=== PATIENT | male | born 1940 | race Caucasian/White ===

== ENCOUNTER 2022-11-16 06:18 | Day surgery (SDC) | payer OTHER, BC ==
[2022-11-16] MEDS ORDERED: TROPICAMIDE 1% OPHTH SOLN 15 ML BOTTLE ONE (06:50)
[2022-11-16] MEDS ORDERED: KETOROLAC TROMETHAMINE 0.5% EYE DROP 1 DROP DROPS ONE (06:50)
[2022-11-16] MEDS ORDERED: PHENYLEPHRINE 2.5% OPTHALMIC DROP 2ML BOTTLE ONE (06:50)
[2022-11-16] MEDS ORDERED: OFLOXACIN 0.3% OPHTHALMIC SOLUTION 5 ML BOTTLE ONE (06:50)
[2022-11-16] MEDS ORDERED: CYCLOPENTOLATE HCL 1% OPHTH SOLN 2 ML BOTTLE ONE (06:50)
[2022-11-16 07:06] VITALS: RESP 18
[2022-11-16] MEDS ORDERED: BACITRACIN/POLYMYXIN OPH OINT 3.5 GM TUBE ONE (07:11)
[2022-11-16] MEDS ORDERED: PHENYLEPHRINE/KETOROLAC 4 ML VIAL IO ONE (07:11)
[2022-11-16] MEDS ORDERED: EPINEPHrine/PF 1 MG/1 ML (1:1,000) AMPULE ONE (07:11)
[2022-11-16] MEDS ORDERED: TETRACAINE 0.5% OPHTH SOLN 2 ML BOTTLE ONE ×2 (07:12→09:27)
[2022-11-16] MEDS ORDERED: BETAXOLOL HCL 0.25% OPHTHALMIC 10 ML DROPSBTL ONE (07:12)
[2022-11-16] MEDS ORDERED: EPI-SHUGARCAINE (EPINEPHRINE 0.025% & LIDOCAINE-PF 0.75%) 4ML ONE (07:12)
[2022-11-16] MEDS ORDERED: TRYPAN BLUE 0.5 ML DISP.SYRIN ONE (07:12)
[2022-11-16] MEDS ORDERED: NEO/POLYMYX B SULF/DEXAMETH OPHTHALMIC 5ML BOTTLE ONE (07:12)
[2022-11-16] MEDS ORDERED: ACETYLCHOLINE 1:100 INTRA-OCUL 20 MG/2 ML KIT ONE (07:12)
[2022-11-16] MEDS ORDERED: POVIDONE-IODINE 5% OPHTHALMIC PREP 30 ML SOLUTION ONE (07:12)
[2022-11-16] MEDS ORDERED: BSS (NA/CA/MG/K) BALANCED SALT SOLUTION OPHTH SOLN 15 ML BOTTLE ONE (07:12)
[2022-11-16] MEDS: TROPICAMIDE 1% OPHTH SOLN 15 ML BOTTLE OS SCH ×3 (07:20→07:30)
[2022-11-16] MEDS: PHENYLEPHRINE 2.5% OPHTH SOLN 15 ML BOTTLE OS SCH ×3 (07:20→07:30)
[2022-11-16] MEDS: CYCLOPENTOLATE HCL 1% OPHTH SOLN 2 ML BOTTLE OS SCH ×3 (07:20→07:30)
[2022-11-16] MEDS: KETOROLAC TROMETHAMINE 0.5% EYE DROP 1 DROP DROPS OS SCH ×3 (07:20→07:30)
[2022-11-16] MEDS: OFLOXACIN 0.3% OPHTHALMIC SOLUTION 5 ML BOTTLE OS SCH ×3 (07:20→07:30)
[2022-11-16] MEDS ORDERED: MIDAZOLAM HCL 2 MG/2 ML SINGLE DOSE VIAL ONE (07:50)
[2022-11-16] MEDS ORDERED: ACETAMINOPHEN 325 MG TABLET (FP) PO PRN (09:38)
[2022-11-16 10:13] VITALS: BP 135/84; PULSE 82; TEMP 97.9
== END 2022-11-16 10:30 | disposition home or self-care (01) ==
LOC: FASU 06:18
PROVIDERS: ATTEND Ophthalmology
PROC: 08RK3JZ Replacement of Left Lens with Synthetic Substitute, Percutaneous Approach (ICD-10-PCS; principal; 2022-11-16 08:59)
DX: H25.89 Other age-related cataract (principal)
CPT/HCPCS: 66984; V2632; J1097

== ENCOUNTER 2022-11-30 06:25 | Day surgery (SDC) | payer OTHER, BC ==
[2022-11-30] MEDS ORDERED: TROPICAMIDE 1% OPHTH SOLN 15 ML BOTTLE ONE (06:36)
[2022-11-30] MEDS ORDERED: PHENYLEPHRINE 2.5% OPTHALMIC DROP 2ML BOTTLE ONE (06:36)
[2022-11-30] MEDS ORDERED: OFLOXACIN 0.3% OPHTHALMIC SOLUTION 5 ML BOTTLE ONE (06:36)
[2022-11-30] MEDS ORDERED: KETOROLAC TROMETHAMINE 0.5% EYE DROP 1 DROP DROPS ONE (06:36)
[2022-11-30] MEDS ORDERED: CYCLOPENTOLATE HCL 1% OPHTH SOLN 2 ML BOTTLE ONE (06:36)
[2022-11-30] MEDS ORDERED: TROPICAMIDE 1% OPHTH SOLN 15 ML BOTTLE OD ONE ×2 (06:50→06:55)
[2022-11-30] MEDS ORDERED: OFLOXACIN 0.3% OPHTHALMIC SOLUTION 5 ML BOTTLE OD ONE ×2 (06:50→06:55)
[2022-11-30] MEDS ORDERED: PHENYLEPHRINE 2.5% OPHTH SOLN 15 ML BOTTLE OD ONE ×2 (06:50→06:55)
[2022-11-30] MEDS: KETOROLAC TROMETHAMINE 0.5% EYE DROP 1 DROP DROPS OD SCH ×2 (06:50→06:55)
[2022-11-30] MEDS ORDERED: CYCLOPENTOLATE HCL 1% OPHTH SOLN 2 ML BOTTLE OD ONE ×2 (06:55→07:00)
[2022-11-30] MEDS ORDERED: CYCLOPENTOLATE HCL 1% OPHTH SOLN 2 ML BOTTLE OD SCH (07:00)
[2022-11-30] MEDS ORDERED: KETOROLAC TROMETHAMINE 0.5% EYE DROP 1 DROP DROPS OD ONE (07:00)
[2022-11-30] MEDS ORDERED: OFLOXACIN 0.3% OPHTHALMIC SOLUTION 5 ML BOTTLE OD SCH (07:00)
[2022-11-30] MEDS ORDERED: PHENYLEPHRINE 2.5% OPHTH SOLN 15 ML BOTTLE OD SCH (07:00)
[2022-11-30] MEDS ORDERED: TROPICAMIDE 1% OPHTH SOLN 15 ML BOTTLE OD SCH (07:00)
[2022-11-30] MEDS ORDERED: EPINEPHrine/PF 1 MG/1 ML (1:1,000) AMPULE ONE (07:12)
[2022-11-30] MEDS ORDERED: BACITRACIN/POLYMYXIN OPH OINT 3.5 GM TUBE ONE (07:12)
[2022-11-30] MEDS ORDERED: PHENYLEPHRINE/KETOROLAC 4 ML VIAL IO ONE (07:12)
[2022-11-30] MEDS ORDERED: BETAXOLOL HCL 0.25% OPHTHALMIC 10 ML DROPSBTL ONE (07:12)
[2022-11-30] MEDS ORDERED: EPI-SHUGARCAINE (EPINEPHRINE 0.025% & LIDOCAINE-PF 0.75%) 4ML ONE (07:13)
[2022-11-30] MEDS ORDERED: TETRACAINE 0.5% OPHTH SOLN 2 ML BOTTLE ONE (07:13)
[2022-11-30] MEDS ORDERED: BSS (NA/CA/MG/K) BALANCED SALT SOLUTION OPHTH SOLN 15 ML BOTTLE ONE (07:13)
[2022-11-30] MEDS ORDERED: POVIDONE-IODINE 5% OPHTHALMIC PREP 30 ML SOLUTION ONE (07:13)
[2022-11-30] MEDS ORDERED: TRYPAN BLUE 0.5 ML DISP.SYRIN ONE (07:13)
[2022-11-30] MEDS ORDERED: NEO/POLYMYX B SULF/DEXAMETH OPHTHALMIC 5ML BOTTLE ONE (07:14)
[2022-11-30] MEDS ORDERED: ACETYLCHOLINE 1:100 INTRA-OCUL 20 MG/2 ML KIT ONE (07:14)
[2022-11-30] MEDS ORDERED: MIDAZOLAM HCL 2 MG/2 ML SINGLE DOSE VIAL ONE (07:34)
[2022-11-30] MEDS ORDERED: ACETAMINOPHEN 325 MG TABLET (FP) PO PRN (09:21)
[2022-11-30 09:36] VITALS: RESP 16; TEMP 98
[2022-11-30 10:39] VITALS: BP 107/66; PULSE 92
== END 2022-11-30 10:30 | disposition home or self-care (01) ==
LOC: FASU 06:25
PROVIDERS: ATTEND Ophthalmology
PROC: 08RJ3JZ Replacement of Right Lens with Synthetic Substitute, Percutaneous Approach (ICD-10-PCS; principal; 2022-11-30 08:49)
DX: H25.89 Other age-related cataract (principal)
CPT/HCPCS: 66984; V2632; J1097

== ENCOUNTER 2024-01-29 23:37 | Inpatient (IN) | payer OTHER, BC ==
[2024-01-30] MEDS ORDERED: LIDOCAINE HCL 2% (20ML MULTI-DOSE VIAL) ONE (00:04)
[2024-01-30] MEDS ORDERED: DIPHTH,PERTUSS(ACELL),TET 0.5 ML DISP.SYRIN IM ONE ×2 (00:55→00:56)
[2024-01-30] MEDS: DIPHTH,PERTUSS(ACELL),TET 0.5 ML DISP.SYRIN IM ONE (00:59)
[2024-01-30] MEDS ORDERED: ACETAMINOPHEN 325 MG TABLET (FP) PO ONE (01:39)
[2024-01-30] MEDS ORDERED: ACETAMINOPHEN INJECTION 100 ML IVPB ONE (02:38)
[2024-01-30] MEDS: ACETAMINOPHEN 1000 MG/100 ML BAG IVPB ONE (02:53)
[2024-01-30] MEDS: LIDOCAINE HCL 2% (50ML VIAL) SQ ONE (02:54)
[2024-01-30 03:01] LABS: BASO % 0.8 % (0-2.0); EOS % 2.4 % (0-4.5); HEMATOCRIT 40.2 % (35.4-49); LYMPH % 18.1 % (8-40); MCH 32.3 pg (25.7-33.7); MCHC 34.9 g/dl (32.0-35.9); MEAN CELL VOLUME 92.6 fl (80-96); MEAN PLT VOLUME 7.7 fl (7.5-11.1); MONO % 8.4 % (3.8-10.2); NEUT % 70.3 % (42.8-82.8); PLATELET COUNT 213 10^3/uL (134-434); RBC 4.34 M/mm3 (4.00-5.60); RDW 14.9 % (11.9-15.9); WHITE BLOOD COUNT 10.3 K/mm3 (4.0-10.0)
[2024-01-30 03:08] LABS: INR 1.35 (0.83-1.09); PROTHROMBIN TIME (PATIENT) 15.1 SEC (9.7-13.0)
[2024-01-30 03:11] LABS: ACTIVATED PTT 38.2 SECONDS (25.2-36.5)
[2024-01-30 03:14] LABS: POTASSIUM 4.1 mmol/L (3.5-5.1)
[2024-01-30 03:16] LABS: CALCIUM 8.5 mg/dL (8.5-10.1)
[2024-01-30 03:18] LABS: ALBUMIN 3.4 g/dl (3.4-5.0); BLOOD UREA NITROGEN 25.2 mg/dL (7-18)
[2024-01-30 03:20] LABS: CREATININE 1.1 mg/dL (0.55-1.3)
[2024-01-30 03:21] LABS: BILIRUBIN,TOTAL 0.7 mg/dL (0.2-1); TOT PROT 6.5 g/dl (6.4-8.2)
[2024-01-30] MEDS ORDERED: ACETAMINOPHEN 325 MG TABLET (FP) PO PRN ×2 (05:56→06:31)
[2024-01-30 06:47] LABS: HEMATOCRIT 37.7 % (35.4-49); HEMOGLOBIN 13.4 GM/dL (11.7-16.9); MCH 32.8 pg (25.7-33.7); MCHC 35.6 g/dl (32.0-35.9); MEAN CELL VOLUME 92.2 fl (80-96); MEAN PLT VOLUME 7.2 fl (7.5-11.1); PLATELET COUNT 202 10^3/uL (134-434); RBC 4.09 M/mm3 (4.00-5.60); RDW 14.3 % (11.9-15.9); WHITE BLOOD COUNT 10.1 K/mm3 (4.0-10.0)
[2024-01-30 07:09] LABS: POTASSIUM 3.6 mmol/L (3.5-5.1)
[2024-01-30 07:11] LABS: CALCIUM 7.3 mg/dL (8.5-10.1)
[2024-01-30 07:12] LABS: ALBUMIN 2.9 g/dl (3.4-5.0); MAGNESIUM 1.7 mg/dL (1.8-2.4)
[2024-01-30 07:15] LABS: CREATININE 0.9 mg/dL (0.55-1.3)
[2024-01-30 07:16] LABS: TOT PROT 5.5 g/dl (6.4-8.2)
[2024-01-30 07:17] LABS: BILIRUBIN,TOTAL 0.7 mg/dL (0.2-1)
[2024-01-30] MEDS ORDERED: METOPROLOL TARTRATE 25 MG TABLET (FP) ONE (09:31)
[2024-01-30] MEDS ORDERED: FAMOTIDINE 20 MG TABLET ONE (09:31)
[2024-01-30] MEDS: METOPROLOL TARTRATE 25 MG TABLET (FP) PO SCH (10:26)
[2024-01-30] MEDS: FAMOTIDINE 20 MG TABLET PO SCH (10:26)
[2024-01-30 16:58] VITALS: BMI 19.9
[2024-01-30 19:05] VITALS: RESP 20
[2024-01-30] MEDS: ATORVASTATIN CA 40 MG TABLET (FP) PO SCH (21:32)
[2024-01-31 05:49] VITALS: BP 110/70; PULSE 81; TEMP 97.7
[2024-01-31] MEDS: MAGNESIUM 2GM/50ML STERILE WATER IVPB IVPB ONE (08:54)
== END 2024-01-31 17:05 | disposition home or self-care (01) | DRG 605 ==
LOC: JER 23:37 → JERBED 01-30 03:33 → OBSVTOIN 01-30 05:39 → JERBED 01-30 10:44 → J4W 01-30 10:46
PROVIDERS: ADMIT Internal Medicine; ATTEND Internal Medicine
DX: S00.03XA Contusion of scalp, initial encounter (principal); I69.351 Hemiplegia and hemiparesis following cerebral infarction affecting right dominant side; I10 Essential (primary) hypertension; E78.00 Pure hypercholesterolemia, unspecified; I48.91 Unspecified atrial fibrillation; I35.0 Nonrheumatic aortic (valve) stenosis; W19.XXXA Unspecified fall, initial encounter; Y93.9 Activity, unspecified; Y92.099 Unspecified place in other non-institutional residence as the place of occurrence of the external cause; Y99.9 Unspecified external cause status
CPT/HCPCS: 0241U-QW; 36415; 70450-TC; 72125-TC; 80053; 83735; 84100; 84484; 85025; 85027; 85610; 85730; 90715; 93005; 93010; 97116-GP; 97161-GP; 99285-25; G0378

== ENCOUNTER 2025-03-18 02:25 | Inpatient (IN) | payer OTHER, BC ==
[2025-03-18 04:13] LABS: URINE APPEARANCE CLEAR; URINE BILIRUBIN NEGATIVE (NEGATIVE); URINE COLOR YELLOW; URINE GLUCOSE (UA) NEGATIVE (NEGATIVE); URINE KETONE TRACE (NEGATIVE); URINE LEUK ESTERASE NEGATIVE (NEGATIVE); URINE NITRITE NEGATIVE (NEGATIVE); URINE PROTEIN NEGATIVE (NEGATIVE); URINE UROBILINOGEN 0.2 mg/dL (0.2-1.0)
[2025-03-18 04:14] LABS: MCHC 32.5 g/dl (32.3-36.5); MEAN CELL VOLUME 97.9 fl (79.0-92.2); MEAN PLT VOLUME 9.8 fl (9.4-12.4); RDW 14.3 % (12.6-16.6)
[2025-03-18] MEDS ORDERED: PIPERACILLIN/TAZOB 4.5 GM 4.5 GM/100 ML BAG IVPB ONE (04:42)
[2025-03-18 04:54] LABS: CO2 24.0 mmol/L (21-32); GLUCOSE,RANDOM 137.0 mg/dL (74-106)
[2025-03-18 04:57] LABS: SGOT/AST 37.0 U/L (15-37); SGPT/ALT 44.0 U/L (13-61)
[2025-03-18 04:58] LABS: CREATININE 1.4 mg/dL (0.55-1.3)
[2025-03-18 04:59] LABS: TOT PROT 6.8 g/dl (6.4-8.2)
[2025-03-18 05:00] LABS: ALK PHOS 125.0 U/L (45-117)
[2025-03-18 05:02] LABS: N-TERMINAL BNP 2528.5 pg/ml (5-450)
[2025-03-18] MEDS: PIPERACILLIN/TAZOB 4.5 GM 4.5 GM in DEXTROSE 5%-WATER 100 ML IVPB ONE (05:02)
[2025-03-18] MEDS: VANCOMYCIN HCL 1,500 MG in DEXTROSE 5%-WATER - 500 ML IVPB ONE (05:44)
[2025-03-18] MEDS: VANCOMYCIN PREMIX 1.5 GM 1,500 MG/300 ML BAG IVPB ONE (05:44)
[2025-03-18 05:50] LABS: HCV DIAGNOSTIC IN-HOUSE W/RFLX NON-REACTIVE (NONREACTIVE)
[2025-03-18] MEDS ORDERED: ACETAMINOPHEN INJECTION 100 ML ONE (10:19)
[2025-03-18] MEDS ORDERED: CEFTRIAXONE 2 GM-D5W BAG 2 GM/50 ML BAG IVPB SCH (10:45)
[2025-03-18] MEDS ORDERED: ACETAMINOPHEN 500 MG TABLET (FP) PO PRN (10:47)
[2025-03-18] MEDS ORDERED: ENOXAPARIN NA (PORCINE) 80 MG/0.8 ML DISP.SYRIN SQ ONE (10:58)
[2025-03-18] MEDS ORDERED: CEFEPIME HCL/D5W 2 GM/50 ML BAG IVPB ONE (10:59)
[2025-03-18] MEDS ORDERED: LACTATED RINGERS SOLUTION 1,000 ML/1,000 ML INFUS.BAG IV SCH (11:15)
[2025-03-18] MEDS: ACETAMINOPHEN 1000 MG/100 ML BAG IVPB ONE (13:51)
[2025-03-18] MEDS: ENOXAPARIN NA (PORCINE) 80 MG/0.8 ML DISP.SYRIN SQ SCH (13:52)
[2025-03-18] MEDS: LACTATED RINGERS SOLUTION 1,000 ML/1,000 ML INFUS.BAG IV SCH (13:53)
[2025-03-18] MEDS: CEFEPIME HCL/D5W 2 GM/50 ML BAG IVPB SCH (13:53)
[2025-03-18] MEDS ORDERED: VANCOMYCIN 1,000 MG in DEXTROSE 5%-WATER - 250 ML IVPB SCH (17:00)
[2025-03-18] MEDS ORDERED: VANCOMYCIN 1 GM PREMIX (F) 1 GM/200 ML BAG IVPB SCH (18:00)
[2025-03-18] MEDS: METOPROLOL TARTRATE 25 MG TABLET (FP) PO SCH (22:47)
[2025-03-19 00:24] VITALS: BMI 23.1
[2025-03-19] MEDS: VANCOMYCIN/WATER FOR INJ (PEG) 1,000 MG/200 ML BAG IVPB SCH (03:54)
[2025-03-19 07:10] LABS: ABSOLUTE IMMATURE GRANULOCYTES 0.06 x10^3/uL (0.0-0.031); BASOPHILS # 0.04 x10^3/uL (0.01-0.08); EOSINOPHIL % 2.1 % (0.8-7.0); EOSINOPHILS # 0.24 x10^3/uL (0.04-0.54); MCHC 32.4 g/dl (32.3-36.5); MEAN CELL VOLUME 97.2 fl (79.0-92.2); MEAN PLT VOLUME 9.4 fl (9.4-12.4); MONOCYTE # 0.96 x10^3/uL (0.30-0.82); MONOCYTE % 8.4 % (5.3-12.2); RDW 14.5 % (12.6-16.6)
[2025-03-19 07:26] LABS: CO2 25.0 mmol/L (21-32); GLUCOSE,RANDOM 79.0 mg/dL (74-106)
[2025-03-19 07:29] LABS: CREATININE 1.0 mg/dL (0.55-1.3)
[2025-03-19] MEDS ORDERED: CEFTRIAXONE 2 MG in DEXTROSE 5%-WATER - 50 ML IVPB SCH (10:15)
[2025-03-19] MEDS: CEFTRIAXONE 2 GM in DEXTROSE 5%-WATER 100 ML IVPB SCH (13:19)
[2025-03-19] MEDS: APIXABAN 5 MG TABLET PO SCH (13:20)
[2025-03-19] MEDS: FUROSEMIDE 40 MG TABLET (FP) PO SCH (13:37)
[2025-03-19 19:43] LABS: HIV INTERPRETATION NEGATIVE (NEGATIVE)
[2025-03-19] MEDS: ATORVASTATIN CA 40 MG TABLET (FP) PO SCH (21:52)
[2025-03-19] MEDS: METOPROLOL TARTRATE 25 MG TABLET (FP) PO SCH (21:52)
[2025-03-19] MEDS: CEFEPIME HCL/D5W 2 GM/50 ML BAG IVPB SCH (23:41)
[2025-03-19] MEDS: VANCOMYCIN 1,000 MG in DEXTROSE 5%-WATER - 250 ML IVPB SCH (23:42)
[2025-03-19] MEDS ORDERED: ACETAMINOPHEN 500 MG TABLET (FP) PO PRN (23:43)
[2025-03-20] MEDS: ASPIRIN 81 MG CHEWABLE TABLETS PO ONE (00:21)
[2025-03-20 00:49] LABS: CO2 26.0 mmol/L (21-32); GLUCOSE,RANDOM 104.0 mg/dL (74-106)
[2025-03-20 00:52] LABS: CREATININE 1.1 mg/dL (0.55-1.3); SGOT/AST 42.0 U/L (15-37); SGPT/ALT 49.0 U/L (13-61)
[2025-03-20 00:53] LABS: TOT PROT 6.9 g/dl (6.4-8.2)
[2025-03-20 00:55] LABS: ALK PHOS 116.0 U/L (45-117)
[2025-03-20 08:05] LABS: ABSOLUTE IMMATURE GRANULOCYTES 0.03 x10^3/uL (0.0-0.031); BASOPHILS # 0.04 x10^3/uL (0.01-0.08); EOSINOPHIL % 4.5 % (0.8-7.0); EOSINOPHILS # 0.40 x10^3/uL (0.04-0.54); MCHC 33.1 g/dl (32.3-36.5); MEAN CELL VOLUME 95.0 fl (79.0-92.2); MEAN PLT VOLUME 9.6 fl (9.4-12.4); MONOCYTE # 0.96 x10^3/uL (0.30-0.82); MONOCYTE % 10.8 % (5.3-12.2); RDW 14.0 % (12.6-16.6)
[2025-03-20] MEDS: CEFTRIAXONE 2 GM in DEXTROSE 5%-WATER 100 ML IVPB SCH (10:08)
[2025-03-20] MEDS: METOPROLOL TARTRATE 25 MG TABLET (FP) PO SCH (10:08)
[2025-03-20] MEDS: APIXABAN 5 MG TABLET PO SCH (10:08)
[2025-03-20] MEDS: DONEPEZIL HCL 5 MG TABLET (FP) PO SCH (10:08)
[2025-03-20] MEDS: ATORVASTATIN CA 40 MG TABLET (FP) PO SCH (21:18)
[2025-03-21 07:23] LABS: MCHC 33.6 g/dl (32.3-36.5); MEAN CELL VOLUME 94.2 fl (79.0-92.2); MEAN PLT VOLUME 9.4 fl (9.4-12.4); RDW 13.7 % (12.6-16.6)
[2025-03-21 07:54] LABS: CO2 24.0 mmol/L (21-32); GLUCOSE,RANDOM 89.0 mg/dL (74-106)
[2025-03-21 07:56] LABS: CREATININE 0.8 mg/dL (0.55-1.3)
[2025-03-21 07:57] LABS: SGOT/AST 54.0 U/L (15-37); SGPT/ALT 65.0 U/L (13-61)
[2025-03-21 07:58] LABS: TOT PROT 6.4 g/dl (6.4-8.2)
[2025-03-21 07:59] LABS: ALK PHOS 119.0 U/L (45-117)
[2025-03-21 13:47] VITALS: RESP 18
[2025-03-21] MEDS ORDERED: ACETAMINOPHEN 500 MG TABLET (FP) PO PRN (17:27)
[2025-03-21] MEDS: METOPROLOL TARTRATE 25 MG TABLET (FP) PO SCH (21:11)
[2025-03-21] MEDS: APIXABAN 5 MG TABLET PO SCH (21:11)
[2025-03-21] MEDS: ATORVASTATIN CA 40 MG TABLET (FP) PO SCH (21:11)
[2025-03-22 08:39] LABS: MCHC 33.5 g/dl (32.3-36.5); MEAN CELL VOLUME 93.7 fl (79.0-92.2); MEAN PLT VOLUME 9.0 fl (9.4-12.4); RDW 13.5 % (12.6-16.6)
[2025-03-22 09:06] LABS: CO2 26.0 mmol/L (21-32); GLUCOSE,RANDOM 84.0 mg/dL (74-106)
[2025-03-22 09:09] LABS: CREATININE 1.0 mg/dL (0.55-1.3); SGOT/AST 66.0 U/L (15-37); SGPT/ALT 90.0 U/L (13-61)
[2025-03-22 09:11] LABS: TOT PROT 6.3 g/dl (6.4-8.2)
[2025-03-22 09:12] LABS: ALK PHOS 131.0 U/L (45-117)
[2025-03-22] MEDS: CEFTRIAXONE 2 GM in DEXTROSE 5%-WATER 100 ML IVPB SCH (09:26)
[2025-03-22] MEDS: DONEPEZIL HCL 5 MG TABLET (FP) PO SCH (09:27)
[2025-03-22 17:08] VITALS: BP 120/80; PULSE 93; TEMP 97.5
== END 2025-03-22 20:15 | DRG 872 ==
LOC: JER 02:25 → JERBED 04:36 → J4W 21:14 → J7W 03-19 23:36 → J8W 03-19 23:37 → J4W 03-20 03:17 → J5S 03-21 17:07
PROVIDERS: ADMIT Internal Medicine
DX: A41.9 Sepsis, unspecified organism (principal); I69.351 Hemiplegia and hemiparesis following cerebral infarction affecting right dominant side; K56.49 Other impaction of intestine; L03.115 Cellulitis of right lower limb; I48.91 Unspecified atrial fibrillation; I10 Essential (primary) hypertension; B95.1 Streptococcus, group B, as the cause of diseases classified elsewhere
CPT/HCPCS: 0241U-QW; 36415; 70450-TC; 70551-TC; 71045-TC-FY; 71250-TC; 74177-TC; 80048; 80053; 81003; 81401; 82607; 83605; 83735; 83880; 84100; 84443; 84484; 85025; 85027; 86780; 86803; 87040; 87077; 87086; 87389; 87637-QW; 93005; 93010; 93306-TC; 93971-TC; 97116-GP; 97162-GP; 99285-25; Q9967